=== PATIENT | male | born 1990 | race Two or more races ===

== ENCOUNTER 2019-01-26 23:54 | Emergency (ER) | payer BC ==
[~2019-01-26] VITALS: Ht 162.6 cm; Wt 69.9 kg
--- NOTE | 2019-01-26 23:59 | NUR ---
ED Nurse Note: CALLED FOR TRIAGE; PT NOT IN WAITING ROOM.
[2019-01-27] MEDS ORDERED: AMOXICILLI250 MG/5 M ORAL (00:06)
[2019-01-27 00:13] VITALS: BP 121/77
--- NOTE | 2019-01-27 00:13 | NUR ---
ED Nurse Note: WAlk-in patient with complaints of congestion, cough and thick phelgm. Patient was instructed by primary to come in for chest xray.
--- NOTE | 2019-01-27 00:44 | Emergency Room Report ---
History of Present Illness General Chief Complaint: Upper Respiratory Illness Source: Patient Present Illness HPI 28-year-old male 6 days of cough, congestion, patient completed course of antibiotics for possible pneumonia, no aggravating or relieving factors, patient severity mild, symptoms constant, patient with productive cough, no fevers no chills no chest pain or shortness of breath, patient was sent in by PCP for evaluation of pneumonia Allergies: Coded Allergies: No Known Allergies (Unverified , 01/27/19) Patient History Past Medical History: see triage record Reviewed Nursing Documentation: PMH: Agreed; PSxH: Agreed Nursing Documentation-PMH Past Medical History: No Stated History Review of Systems All Other Systems: negative except mentioned in HPI Physical Exam Vital Signs Date Time Temp Pulse Resp B/P (MAP) Pulse Ox O2 Delivery O2 Flow Rate FiO2 01/27/19 00:02 98.4 70 14 121/77 (92) 96 Room Air General Appearance: well appearing, no apparent distress Head: normocephalic, atraumatic ENT: hearing grossly normal, normal voice Neck: full range of motion, supple Respiratory: lungs clear, normal breath sounds, no respiratory distress, speaking full sentences Cardiovascular #1: normal peripheral pulses, regular rate, rhythm Musculoskeletal: no calf tenderness Neurologic: alert, normal gait Psychiatric: mood/affect normal Skin: no rash Medical Decision Making Diagnostic Impression: Primary Impression: Upper respiratory infection Qualified Codes: J06.9 - Acute upper respiratory infection, unspecified Additional Impression: Bronchitis ER Course 28-year-old male presents with cough, congestion, sent in by PCP for evaluation my differential diagnosis includes bronchitis, pneumonia, URI Chest x-ray negative for acute cardiopulmonary processes Reassurance given to patient disposition home with return precautions Chest X-Ray Diagnostic Results Chest X-Ray Diagnostic Results : Chest X-Ray Ordered: Yes # of Views/Limited/Complete: 1 View Indication: Shortness of Breath EP Interpretation: Yes Interpretation: no consolidation, no effusion, no pneumothorax, no acute cardiopulmonary disease Impression: No acute disease Electronically Signed by: Jose Carlos Erazo MD Last Vital Signs Date Time Temp Pulse Resp B/P (MAP) Pulse Ox O2 Delivery O2 Flow Rate FiO2 01/27/19 00:13 70 14 Room Air 01/27/19 00:13 98.4 121/77 96 Disposition: HOME, SELF-CARE Condition: Stable Referrals: [facility],REFERRING (PCP) [facility] Dominick Plasencia. [facility] Patient Instructions: Acute Bronchitis, [id number], Upper Respiratory Infection, Adult Additional Instructions: The patient was provided with discharge instructions, notified to follow-up with a primary care doctor and or specialist in the next 24-48 hours, and to return to the ED if they have worsening of their symptoms. Please note that this report is being documented using DRAGON technology. This can lead to erroneous entry secondary to incorrect interpretation by the dictating instrument. Jose Carlos Erazo MD Jan 27, 2019 00:44
[2019-01-27 01:23] VITALS: BP 121/77
--- NOTE | 2019-01-27 01:23 | NUR ---
ED Nurse Note: Patient cleared for discharge, no s/s/ of acute distress. Patient ID band removed, Patient verblaized understanding of discharge instructions. Patient is A&Ox4 and ambulatory with steady gait. Patient departed with all belongings.
--- NOTE | 2019-01-27 17:26 | Diagnostic Imaging Report ---
Indication: Cough Technique: One view of the chest Comparison: none Findings: Lungs and pleural spaces are clear. Heart size is normal. Impression: No acute process
== END 2019-01-27 01:23 | disposition home or self-care (01) ==
LOC: EMR 23:59
DX: J40 Bronchitis, not specified as acute or chronic (principal); J06.9 Acute upper respiratory infection, unspecified
CPT/HCPCS: 71045; 99283